=== PATIENT | male | born 1965 | race Caucasian/White ===

== ENCOUNTER → 2018-08-28 | Outpatient (CLI) | payer BC, OTHER ==
--- NOTE | 2018-08-28 15:28 | NM ---
EXAMINATION TYPE: NM bone/joint limited DATE OF EXAM: 08/28/2018 COMPARISON: NONE HISTORY: Bilateral knee pain for 4 to 5 months. Known left arthroplasty. TECHNIQUE: After the intravenous administration of 25.0 mCi Tc 99m MDP. Images acquired 3 hours pos t injection. Multiple views of knees are submitted. FINDINGS: Although there is radiotracer uptake within both knees findings on the right are likely rel ated to arthropathy. Findings on the left with a history of left knee prosthesis are suggestive of as eptic loosening as there is diffuse periprosthetic uptake. Septic loosening is also possible. IMPRESSION: Periprosthetic uptake surrounding the left knee arthroplasty that can be seen in septic o r aseptic loosening. Correlate with timing of left knee arthroplasty as this can also be seen physiol ogically up to one year after surgery. Mild uptake within the right knee suggests arthropathy.
== END | disposition home or self-care (01) ==
LOC: RADNMMAIN 10:12
PROVIDERS: ATTEND Orthopaedic Surgery
DX: M17.11 Unilateral primary osteoarthritis, right knee (principal); M25.562 Pain in left knee; Z96.652 Presence of left artificial knee joint
CPT/HCPCS: 78300; A9503

== ENCOUNTER → 2018-10-13 | Outpatient (CLI) | payer BC, OTHER ==
[~2018-10-13] MED LIST: REGADENOSON 0.4 MG/5 ML SYRINGE IV ONE
--- NOTE | 2018-10-13 12:52 | NM ---
EXAMINATION TYPE: NM stress lexiscan cardiolite DATE OF EXAM: 10/13/2018 COMPARISON: NONE HISTORY: Chest pain TECHNIQUE: After the intravenous administration of 10.14 mCi Tc 99m Sestamibi - Cardiolite resting S PECT images acquired 45 minutes post injection. The patient received 0.4mg Lexiscan, 24.4 mCi Tc 99m Sestamibi - Stress images obtained [address] injection FINDINGS: Review of stress and rest SPECT images demonstrates no distinct perfusion abnormality. Gated analysi s shows normal wall motion with an estimated left ventricular ejection fraction of 58 %. IMPRESSION: No scintigraphic evidence for reversible ischemia.
--- NOTE | 2018-10-13 13:53 | EST ---
EXERCISE STRESS AGE: 53 SEX: M HT: 5'7" WT: 210 PROTOCOL: Lexiscan Cardiolite Stress Scan HEART RATE REST: 67 BLOOD PRESSURE REST: 138/80 MAXIMUM HEART RATE ACHIEVED: 95 MAXIMUM BLOOD PRESSURE: 139/72 85% MPHR: 141 100% MPHR: 166 INDICATIONS: Abnormal EEG, preoperative. CLINICAL INFORMATION: Baseline rhythm is a sinus mechanism, rate of 67, borderline right axis deviation. Baseline blood pressure 138/80 mmHg. Patient received injection of Lexiscan. Electrocardiographic monitoring revealed no evidence of diagnostic ischemic ST deviation. Cardiolite was injected per protocol. CONCLUSION: 1. Nondiagnostic electrocardiograph stress testing. 2. Nuclear images will be reported separately. MMODL / IJN: [id number] /
== END | disposition home or self-care (01) ==
LOC: RADNMMAIN 08:19
PROVIDERS: ATTEND Family Medicine
DX: R94.31 Abnormal electrocardiogram [ECG] [EKG] (principal)
CPT/HCPCS: 93017; 78452; A9500; J2785

== ENCOUNTER → 2018-10-16 | Outpatient (CLI) | payer BC, OTHER ==
--- NOTE | 2018-10-16 11:47 | XR ---
EXAMINATION TYPE: XR chest 2V DATE OF EXAM: 10/16/2018 COMPARISON: 11/01/2010 HISTORY: Presurgical evaluation. TECHNIQUE: Frontal and lateral views of the chest are obtained. FINDINGS: There is no focal air space opacity, pleural effusion, or pneumothorax seen. The cardiac silhouette size is within normal limits. The osseous structures are intact. Multilevel mild degener ative changes of the thoracic spine are seen as well as old healed rib fracture deformity of a lower posterior lateral right rib. IMPRESSION: No acute cardiopulmonary process.
== END | disposition home or self-care (01) ==
LOC: RADXRMAIN 10:01
PROVIDERS: ATTEND Family Medicine
DX: Z01.818 Encounter for other preprocedural examination (principal)
CPT/HCPCS: 71046

== ENCOUNTER 2018-10-22 13:00 | Inpatient (IN) | payer BC, OTHER ==
[2018-10-30 09:38] VITALS: BMI 33.6
[2018-10-31] MEDS ORDERED: ACETAMINOPHEN TAB 500 MG TAB PO ONE (05:00)
[2018-10-31] MEDS ORDERED: MELOXICAM 7.5 MG TAB PO ONE (05:00)
[2018-10-31] MEDS ORDERED: TRANEXAMIC ACID 1,000 MG in SODIUM CHLORIDE 0.9% 50 ML IVPB ONE ×4 (05:00)
[2018-10-31] MEDS ORDERED: ceFAZolin IN SWFI 2 GM/20 ML SYRINGE IVP ONE (05:00)
[2018-10-31] MEDS ORDERED: ONDANSETRON 4 MG/2 ML VIAL IVP ONE (05:49)
[2018-10-31] MEDS ORDERED: DEXAMETHASONE SOD PHOSPHATE 10 MG/ML 1 ML VIAL IV ONE (05:49)
[2018-10-31] MEDS ORDERED: SCOPOLAMINE 1.5MG/72HR PATCH TRANSDERM ONE (05:49)
[2018-10-31] MEDS ORDERED: HYDROmorphone 0.5 MG/0.5 ML SYRINGE IVP PRN ×3 (05:49→09:23)
[2018-10-31] MEDS ORDERED: ROPIVACAINE 246.25 MG, EPINEPHrine 0.5 MG, KETOROLAC 30 MG, cloNIDine HCL/PF 80 MCG, WA... MISCELLANE ONE ×5 (06:21)
[2018-10-31] MEDS ORDERED: LIDOCAINE 1% 20 ML VIAL (10MG/ML) FOR IV START INTRADERMA ONE (07:55)
[2018-10-31] MEDS: LACTATED RINGERS 1,000 ML IV SCH ×2 (07:55→13:26)
[2018-10-31] MEDS: MIDAZOLAM (PF) 2 MG/2 ML VIAL IV PRN ×2 (08:29→08:33)
[2018-10-31] MEDS ORDERED: fentaNYL (PF) 50 MCG/ML 2 ML AMP IVP ONE (08:30)
[2018-10-31] MEDS ORDERED: DIAZEPAM 5 MG TAB PO PRN (09:23)
[2018-10-31] MEDS ORDERED: HYDROmorphone 1 MG/ML 1 ML SYRINGE IVP PRN (09:23)
[2018-10-31] MEDS ORDERED: ONDANSETRON 4 MG/2 ML VIAL IVP PRN (09:23)
[2018-10-31] MEDS ORDERED: MAGNESIUM HYDROXIDE 2,400 MG/10 ML CUP PO PRN (09:23)
[2018-10-31] MEDS ORDERED: BISACODYL 10 MG SUPP RECTAL PRN (09:23)
[2018-10-31] MEDS ORDERED: NA PHOS,M-B/NA PHOS,DI-BA 133 ML ENEMA RECTAL PRN (09:23)
[2018-10-31] MEDS ORDERED: NALOXONE 0.4 MG/ML 1 ML VIAL IV PRN (09:23)
[2018-10-31] MEDS ORDERED: hydrOXYzine PAMOATE 25 MG CAP PO PRN (09:23)
[2018-10-31] MEDS ORDERED: HYDROcodone/APAP 7.5-325MG 1 EACH TAB PO PRN (09:25)
[2018-10-31] MEDS ORDERED: fentaNYL (PF) 50 MCG/ML 2 ML AMP ONE (09:55)
[2018-10-31] MEDS ORDERED: BUPIVACAINE (PF) 0.5% 30 ML VIAL ONE (09:55)
[2018-10-31] MEDS ORDERED: SODIUM CHLORIDE 0.9% 100 ML BAG ONE (09:55)
[2018-10-31] MEDS ORDERED: PROPOFOL 10 MG/ML 20 ML VIAL IV ONE (09:55)
[2018-10-31] MEDS ORDERED: TRANEXAMIC ACID 1,000 MG/10 ML VIAL ONE (09:55)
[2018-10-31] MEDS ORDERED: ePHEDrine SULFATE/0.9% NACL/PF 50 MG/5 ML SYRINGE IV ONE (09:55)
[2018-10-31] MEDS ORDERED: MIDAZOLAM 2 MG/2 ML VIAL ONE (09:55)
[2018-10-31] MEDS ORDERED: ceFAZolin 3,000 MG in SODIUM CHLORIDE 0.9% IRRIGATIO 3,000 ML IRRIGATION ONE (10:39)
[2018-10-31] MEDS ORDERED: LACTATED RINGERS 1,000 ML IV ONE (10:43)
[2018-10-31] MEDS ORDERED: ROPIVACAINE 1,100 MG, SODIUM CHLORIDE 0.9% 500 ML 330 ML MISCELLANE PRN ×4 (11:38)
--- NOTE | 2018-10-31 11:42 | P.ONQ ---
Anesthesiology Proc Note - PNB - Peripheral Nerve Block Performed Left Adductor Canal Infusion Time Out Performed: Yes (829) Procedure Start Time: :30 Procedure Stop Time: :40 Indication: Acute Post-Operative Pain, Dx/Pain Location (Left Knee Pain), Requested by physician Sedation Type: Sedate with meaningful contact maintained Preparation: Sterile Prep Position: Supine Catheter: Indwelling Needle Types: On-Q Needle Size: 100mm (4") Needle Gauge: 21 Technique: Ultrasound Injectate: 0.5% Ropivacaine (see comment for volume) (20ml) Blood Aspirated: No Pain Paresthesia on Injection Noted: No Resistance on Injection: Normal Events: Uneventful and Well Tolerated
--- NOTE | 2018-10-31 12:18 | P.OP ---
Date of Procedure: 10/31/18 Preoperative Diagnosis: Aseptic loosening left total knee arthroplasty Stiffness left total knee arthroplasty Postoperative Diagnosis: Aseptic loosening femoral component left total knee arthroplasty Stiffness left total knee arthroplasty Procedure(s) Performed: Revision left total knee arthroplasty Implants: Blunt and Nephew Oxinium constrained femoral component size 4, left Blunt and Nephew Legion press-fit stem 18 mm x 160 mm Blunt & Nephew legion revision tibial baseplate size 4 Blunt and Nephew Legion press-fit stem 16 mm x 120 mm Blunt & Nephew size 9 mm Legion constrained articular insert, size 3-4 Blunt & Nephew Yuki II resurfacing patellar component, 29 mm, 7.5 mm thick All components were cemented using Master antibiotic bone cement with tobramycin 2 The articulation is Oxinium on polyethylene. Anesthesia: spinal Surgeon: Nabor Carroll Public Relations Senior Associate #1: Ava Pearl Estimated Blood Loss (ml): 100 Pathology: other (Cultures 2, frozen section) Condition: stable Disposition: PACU Indications for Procedure: This is a 53-year-old gentleman presented to my office with pain and instability of his left knee. He is at a prior left total knee by Dr. Albert this continued to have trouble with it. X-rays of bone scan indicate strong possibility of loosening of his left total knee. After discussing the surgical and nonsurgical treatment options with him at length, he wishes to proceed with a revision of his left total knee arthroplasty, and informed consent was obtained. Operative Findings: The operative findings are consistent with loosening of the femoral component left total knee arthroplasty. Also the findings are consistent with significant arthrofibrosis of the left total knee with significant scar formation Description of Procedure: Patient was seen in the preoperative area consent was reviewed and operative site was marked with a skin marker. An adductor canal pain catheter was placed by anesthesia in the preoperative area. Patient was then brought to the operating room and given preoperative antibiotics intravenously. A spinal anesthetic was administered by the anesthesia department. A tourniquet was placed on the upper thigh and the lower extremity was prepped and draped in usual sterile fashion. A gram of transexamic acid was given. A universal timeout was then performed which confirmed the patient's name, surgical site, ALLERGIES, and consent. The lower extremity was then exsanguinated and tourniquet was inflated to 250 mmHg. A standard and anterior midline approach to the knee was performed. The skin and subcutaneous tissue was dissected down to the patellar tendon, with the prior scar being excised. A medial parapatellar arthrotomy was then performed. A moderate amount of clear fluid was encountered, and this was cultured 2. The knee was then extended, the patellar was everted, and the knee was again flexed. A sample of synovium was then sent for frozen section, which was found to be negative for acute inflammation. There was difficulty in everting the patella, so a quadriceps snip was performed in order to enhance exposure without risking rupturing the patellar tendon. The components were then inspected and grossly were found to be well fixed. The tibial poly-was then removed without incident. Attention was directed to the femur. On closer inspection, the femoral component did appear to be loose. Also, it was noted that the femoral component was quite large and possibly oversized. Using a small oscillating saw, the implant cement interface was disrupted, and the femoral component was easily removed with an osteotome and a mallet. There was minimal bone loss encountered. Attention was then directed to the tibia. Again using a small oscillating saw, the implant bone interface was disrupted. The tibial component was an easily removed with an osteotome and a mallet. The undersurface of the tibial component showed very little bone ingrowth. There was very little bone loss from the tibia. Next, the saw was then used to remove the patellar component and as well. Attention was redirected to the femur. Sequential reaming of the femoral canal was performed until good cortical fit at 18 mm. The distal cutting guide was then placed over the reamer the distal femur cut was performed. Next the 4-in- 1 cutting block was placed over the reamer and the appropriate cuts were performed. The cutting block and reamer were then removed and the femoral trial was placed. The bone was then removed for the box. Femoral trial was then removed. Attention was then redirected to the tibia. Sequential reaming of the tibial canal was performed until good cortical fit at 16 mm. The intramedullary proximal tibial cutting guide was then placed over the reamer, the proximal tibia was cut. The tibia was sized. The tibia was then reamed proximally.. Trials were then placed with a 9 mm constrained liner. The knee was able to fully extend and flex to 115 and was stable throughout all range of motion. Trials were then removed. The cut surfaces of bone were then irrigated with pulsatile lavage. The posterior structures were injected with the ropivacaine solution. The knee was also irrigated with Irrisept solution. The components were then opened, the cement was mixed, and the components were then cemented in place. The cement was allowed to harden with the knee in full extension. While the cement was hardening, the remaining soft tissues were then injected with a ropivacaine solution, which consisted of 246.25 mg of ropivacaine, 0.5 mg of epinephrine, 30 mg of Toradol, 80 g of clonidine, and 48.45 mL of sterile water, for a total of 100 mL of fluid injected. After the cemented hardened. The tourniquet was released, and hemostasis was obtained. A second gram of transexamic acid was given. The knee was again irrigated. The knee was again taken through range of motion and found to be stable throughout all range of motion of 0-130 , and the patella tracked normally. The fascia was then closed with #2 strata fix suture. The subcutaneous tissue was closed with 3-0 Vicryl and 3-0 strata fix. Dermabond glue was used for the skin and placed with the knee in flexion. The patient was placed in a sterile silver dressing. Patient was then transferred to recovery room in stable condition. The family and divorce legal assistant LAURENT Tom was required due the complexity surgery and the need for a skilled certified surgical technician. She assisted in positioning, draping, retraction, and closure of the wound.
[2018-10-31] MEDS: SODIUM CHLORIDE 0.9% 1,000 ML IV SCH (13:27)
--- NOTE | 2018-10-31 13:31 | XR ---
EXAMINATION TYPE: XR knee limited LT DATE OF EXAM: 10/31/2018 CLINICAL HISTORY: Postoperative evaluation Two views of the left knee are submitted. Identified are changes of total knee arthroplasty with fem oral and tibial components appearing well seated. Postsurgical soft tissue changes are noted. Align ment is anatomic.
[2018-10-31] MEDS: ceFAZolin IN SWFI 2 GM/20 ML SYRINGE IVP SCH (17:23)
[2018-10-31] MEDS: ASPIRIN 325 MG TAB PO SCH (20:52)
[2018-10-31] MEDS ORDERED: SENNOSIDES-DOCUSATE SODIUM 1 EACH TAB PO SCH (21:00)
[2018-11-01] MEDS: SODIUM CHLORIDE 0.9% 1,000 ML IV SCH (00:21)
[2018-11-01 01:07] VITALS: RESP 16
[2018-11-01] MEDS: ceFAZolin IN SWFI 2 GM/20 ML SYRINGE IVP SCH (02:05)
[2018-11-01] MEDS: HYDROcodone/APAP 7.5-325MG 1 EACH TAB PO PRN ×2 (02:05→08:03)
[2018-11-01 07:10] LABS: Basophils % (A) 0 %; Eosinophils # (A) 0.1 k/uL (0-0.7); Eosinophils % (A) 1 %; HCT 40.2 % (39.0-53.0); HGB 12.9 gm/dL (13.0-17.5); Lymphocytes # (A) 1.4 k/uL (1.0-4.8); Lymphocytes % (A) 18 %; MCH 28.9 pg (25.0-35.0); MCHC 32.1 g/dL (31.0-37.0); Mean Platelet Volume 6.7; Monocytes # (A) 0.6 k/uL (0-1.0); Monocytes % (A) 8 %; Neutrophils # (A) 5.4 k/uL (1.3-7.7); Neutrophils % (A) 70 %; Platelet Count 276 k/uL (150-450); RBC 4.47 m/uL (4.30-5.90); RDW 13.3 % (11.5-15.5); WBC 7.7 k/uL (3.8-10.6)
[2018-11-01 07:42] VITALS: BP 129/76; PULSE 64; TEMP 98.4
[2018-11-01] MEDS: ASPIRIN 325 MG TAB PO SCH (08:03)
[2018-11-01] MEDS ORDERED: MELOXICAM 7.5 MG TAB PO SCH (09:00)
--- NOTE | 2018-11-01 11:11 | P.DS ---
Providers Date of admission: 10/31/18 07:26 Expected date of discharge: 11/01/18 Attending physician: Nabor Carroll Consults: 10/31/18 09:23 Consult Physician Routine Consulting Provider: Clive Tomas Reason/Comments: medical management Do you want consulting provider notified?: Yes Primary care physician: Clive Tomas - Discharge Diagnosis(es) (1) Left knee pain Current Visit: Yes Status: Acute (2) Status post total left knee replacement Current Visit: Yes Status: Acute Hospital Course: This is a pleasant 53-year-old male who presented with aseptic loosening of femoral head component of left total knee arthroplasty and stiffness of left total knee arthroplasty who failed outpatient conservative therapy. He was admitted for a revision left total knee arthroplasty. The patient tolerated the procedure well and did well postoperatively. He feels his left knee pain has already improved as compared to prior to surgical intervention. He has been able to weight-bear on the left lower extremity and feels his pain is better controlled while doing so. He is ready for discharge home. Condition on day of discharge stable. Patient will be discharged home. Patient was cleared preoperatively for surgery by Dr. Tomas. He receives his narcotic pain medication from Dr. Tomas. Patient currently denies any nausea, vomiting, fever, or chills. Patient is eating and voiding freely without difficulty. Patient may shower with dressing intact. Dressing may be removed in 10 days by home care nurse. He is given a prescription for a CPM and she uses 5-6 hours daily. He may continue to weight-bear as tolerated with a walker. He is given a prescription for aspirin 325 mg 1 tab twice a day dispensed #30 discharge. Patient is clear for discharge from orthopedic standpoint once cleared by medicine. He may continue to use the On-Q pain pump as instructed. Physical Exam on day of discharge: Status post surgical day number 1 Patient is awake, alert, and oriented 3 Vital signs stable Good chest excursion with deep inspiration and expiration Abdomen soft nontender No signs or symptoms of DVT; no calf pain Dressing over the left knee is clean, dry, and intact; no erythema, purulence, or signs of infection Some swelling evident around the left knee Patient has full foot and ankle motion without difficulty bilateral lower extremities Dorsiflexion, plantar flexion, and extensor hallucis longus positive sustained bilaterally Neurovascular status left lower extremity intact Currently using CPM machine Procedures: Revision left total knee arthroplasty Patient Condition at Discharge: Stable Plan - Discharge Summary Discharge Rx Participant: No New Discharge Prescriptions: New Aspirin 325 mg PO BID #60 tab No Action HYDROcodone/APAP 7.5-325MG [Trade 7.5-325] 1 tab PO Q8H PRN PRN Reason: Pain Lisinopril [Prinivil] 20 mg PO DAILY amLODIPine [Norvasc] 5 mg PO DAILY Rosuvastatin [Crestor] 10 mg PO DAILY Diclofenac Potassium [Cataflam] 50 mg PO BID Fluticasone/Salmeterol [Advair 250-50 Diskus] 1 inhalation PO RT-DAILY PRN PRN Reason: Dyspnea Cetirizine HCl 10 mg PO DAILY Testosterone (Unknown Dose) 1 dose INJ Q30D Discharge Medication List HYDROcodone/APAP 7.5-325MG [[place] 7.5-325] 1 tab PO Q8H PRN 06/30/15 [History] Lisinopril [Prinivil] 20 mg PO DAILY 06/30/15 [History] Cetirizine HCl 10 mg PO DAILY 10/30/18 [History] Diclofenac Potassium [Cataflam] 50 mg PO BID 10/30/18 [History] Fluticasone/Salmeterol [Advair 250-50 Diskus] 1 inhalation PO RT-DAILY PRN 10/30 [History] Rosuvastatin [Crestor] 10 mg PO DAILY 10/30/18 [History] Testosterone (Unknown Dose) 1 dose INJ Q30D 10/30/18 [History] amLODIPine [Norvasc] 5 mg PO DAILY 10/30/18 [History] Aspirin 325 mg PO BID #60 tab 10/31/18 [Rx] Follow up Appointment(s)/Referral(s): [facility], [NON-STAFF] - Nabor Carroll DO [Doctor of Osteopathic Medicine] - 2 Weeks Ambulatory/Diagnostic Orders: Continuous Passive Motion (CPM) Machine [DME.AMB1] Time Frame: 3 Weeks, Location : None Selected Activity/Diet/Wound Care/Special Instructions: Weightbearing as tolerated with a walker. CPM 5-6h daily. Leave dressing intact. May be removed by home care nurse in 10 days. May shower with dressing on. Pain management per Dr. Tomas. Please follow up with [facility] and call with any questions or concerns, . *Please call [facility] once home to arrange delivery of [facility] [phone] Discharge Disposition: HOME WITH HOME HEALTH SERVICES
--- NOTE | 2018-11-02 09:36 | P.PN ---
Progress Note - Text Progress Note Date: 11/01/18 53-year-old male status post left total knee arthroplasty revision postop day # 1. Abductor canal catheter day #2. Patient doing well no motor sensory deficits. Ambulating well, tolerating diet well. VAS is a 2-3 out of 10 in severity. Still having pain in the posterior aspect of his knee. He took one Percocet today. Instructions given for On-Q pump. Patient will be discharged today.
--- NOTE | 2018-11-03 01:03 | CONS ---
CONSULTATION DATE OF SERVICE: 10/31/2018. CHIEF COMPLAINT: A 53-year-old white male status post left knee replacement for medical management consult. He has a history of hypertension, dyslipidemia. He is complaining of severe insomnia at this time. He has chronic arthritis, degenerate disk disease. PHYSICAL EXAMINATION: CARDIOVASCULAR: S1 and S2. LUNGS: Clear. GI: Soft. HEMATOLOGY: Negative Homans. PSYCH: Fair mood and affect. REVIEW OF SYSTEMS: Fourteen point review of systems negative except for mentioned in HPI. MEDICATIONS: Reviewed. ASSESSMENT: 1. Status post left knee replacement. 2. Hypertension. 3. Dyslipidemia. 4. Asthma/COPD. 5. Osteoarthritis. 6. Insomnia. Will start Ambien for sleep 5 mg at night. Continue for next 24 to 48 hours for possible discharge. Appears to be doing fairly well from medical standpoint. MMODL / IJN: [id number] /
== END 2018-11-01 12:48 | disposition home health service (06) | DRG 468 ==
LOC: 2ORMAIN 10-31 07:26 → 4SSUR 10-31 13:10
PROVIDERS: ADMIT Orthopaedic Surgery; ATTEND Orthopaedic Surgery
PROC: 0SRD0J9 Replacement of Left Knee Joint with Synthetic Substitute, Cemented, Open Approach (ICD-10-PCS; 2018-10-31)
PROC: 0SPD0JZ Removal of Synthetic Substitute from Left Knee Joint, Open Approach (ICD-10-PCS; principal; 2018-10-31 09:30)
DX: T84.033A Mechanical loosening of internal left knee prosthetic joint, initial encounter (principal); Y79.2 Prosthetic and other implants, materials and accessory orthopedic devices associated with adverse incidents; I10 Essential (primary) hypertension; E78.5 Hyperlipidemia, unspecified; G47.00 Insomnia, unspecified; M17.11 Unilateral primary osteoarthritis, right knee; J44.9 Chronic obstructive pulmonary disease, unspecified; Z87.891 Personal history of nicotine dependence; Z79.899 Other long term (current) drug therapy; Z82.49 Family history of ischemic heart disease and other diseases of the circulatory system
CPT/HCPCS: 85025; 87070; 87075; 87205; 88305; 88331

== ENCOUNTER → 2019-03-03 | Outpatient (CLI) | payer BC, OTHER | LOC: CPPFTMAIN 10:08 | PROVIDERS: ATTEND Family Medicine | DX: R06.00 Dyspnea, unspecified (principal) | CPT/HCPCS: 94060; 94726; 94729 ==

== ENCOUNTER 2019-11-21 10:40 | Emergency (ER) | payer BC, OTHER ==
[2019-11-21 10:54] VITALS: BP 163/103; PULSE 77; TEMP 98.1
--- NOTE | 2019-11-21 11:12 | ED ---
ENT HPI - General Chief complaint: ENT Stated complaint: Right Ear Problems Time Seen by Provider: 11/21/19 10:58 Source: patient, RN notes reviewed Mode of arrival: wheelchair Limitations: no limitations - History of Present Illness Initial comments: 54-year-old male presents emergency Department chief complaint of right ear being plugged. Patient states that he would like to wax yesterday and states that it seemed to plug up after and states this ringing. Denies any known fevers or chills states it is slightly painful. Denies any bleeding. Patient denies any nasal congestion, sore throat, headache or dizziness no chest pain or shortness breath. - Related Data Home Medications Medication Instructions Recorded Confirmed HYDROcodone/APAP 7.5-325MG [[place] 1 tab PO Q8H PRN 06/30/15 10/31/18 7.5-325] Lisinopril [Prinivil] 20 mg PO DAILY 06/30/15 10/31/18 Cetirizine HCl 10 mg PO DAILY 10/30/18 10/31/18 Diclofenac Potassium [Cataflam] 50 mg PO BID 10/30/18 10/31/18 Fluticasone/Salmeterol [Advair 1 inhalation PO RT-DAILY PRN 10/30/18 10/31/18 250-50 Diskus] Rosuvastatin [Crestor] 10 mg PO DAILY 10/30/18 10/31/18 Testosterone (Unknown Dose) 1 dose INJ Q30D 10/30/18 10/31/18 amLODIPine [Norvasc] 5 mg PO DAILY 10/30/18 10/31/18 Previous Rx's Medication Instructions Recorded Aspirin 325 mg PO BID #60 tab 10/31/18 Zolpidem Tartrate [Ambien] 5 mg PO HS PRN #15 tab 11/01/18 Amoxicillin 875 mg PO Q12HR #20 tablet 11/21/19 Fluticasone Nasal [place] [Flonase 2 spr EA NOSTRIL DAILY #1 bottle 11/21/19 Nasal [place]] Allergies Allergy/AdvReac Type Severity Reaction Status Date / Time No Known Allergies Allergy Verified 11/21/19 10:50 Review of Systems ROS Statement: Those systems with pertinent positive or pertinent negative responses have been documented in the HPI. ROS Other: All systems not noted in ROS Statement are negative. Past Medical History Past Medical History: Hypertension Additional Past Medical History / Comment(s): shortness of breath on occasion, sinus issues History of Any Multi-Drug Resistant Organisms: None Reported Past Surgical History: Joint Replacement, Orthopedic Surgery Additional Past Surgical History / Comment(s): LEFT KNEE REPLACEMENT,LEFT ANKLE Past Anesthesia/Blood Transfusion Reactions: No Reported Reaction Past Psychological History: No Psychological Hx Reported Past Drug Use History: None Reported - Past Family History Mother Family Medical History: No Reported History General Exam Limitations: no limitations General appearance: alert, in no apparent distress Head exam: Present: atraumatic, normocephalic, normal inspection Eye exam: Present: normal appearance, PERRL, EOMI. Absent: scleral icterus, conjunctival injection, periorbital swelling ENT exam: Present: normal oropharynx, mucous membranes moist, normal external ear exam. Absent: TM's normal bilaterally (Right TM erythematous, mild fluid noted) Neck exam: Present: normal inspection, full ROM. Absent: tenderness, meningismus, lymphadenopathy Respiratory exam: Present: normal lung sounds bilaterally. Absent: respiratory distress, wheezes, rales, rhonchi, stridor Cardiovascular Exam: Present: regular rate, normal rhythm, normal heart sounds. Absent: systolic murmur, diastolic murmur, rubs, gallop, clicks Course Vital Signs 11/21/19 10:48 Temperature 98.1 F Pulse Rate 77 Respiratory 16 Rate Blood Pressure 163/103 O2 Sat by Pulse 98 Oximetry Medical Decision Making - Medical Decision Making Patient has primary fluid noted in the right TM there is no evidence of perforation mild erythema. Patient we given antibiotics and Flonase advised take a decongestant return parameters were discussed. Disposition Clinical Impression: Otitis media, Eustachian tube dysfunction Disposition: HOME SELF-CARE Condition: Stable Instructions (If sedation given, give patient instructions): Earache (ED) Additional Instructions: Please return to the Emergency Department if symptoms worsen or any other concerns. Prescriptions: Amoxicillin 875 mg PO Q12HR #20 tablet Fluticasone Nasal [place] [Flonase Nasal [place]] 2 spr EA NOSTRIL DAILY #1 bottle Is patient prescribed a controlled substance at d/c from ED?: No Referrals: Clive Tomas MD [Primary Care Provider] - 1-2 days Time of Disposition: 11:12
[2019-11-21 11:23] VITALS: RESP 18
== END 2019-11-21 11:23 | disposition home or self-care (01) ==
LOC: EC 10:40
DX: H66.91 Otitis media, unspecified, right ear (principal); H69.91 Unspecified Eustachian tube disorder, right ear; I10 Essential (primary) hypertension; Z79.899 Other long term (current) drug therapy; Z96.652 Presence of left artificial knee joint
CPT/HCPCS: 99282

== ENCOUNTER → 2020-01-12 | Outpatient (CLI) | payer BC, OTHER ==
--- NOTE | 2020-01-12 08:16 | CT ---
EXAMINATION TYPE: CT sinus wo con DATE OF EXAM: 01/12/2020 COMPARISON: NONE HISTORY: Sinusitis, ear fullness CT DLP: 525.9 mGycm. Automated Exposure Control for Dose Reduction was Utilized. TECHNIQUE: CT scan of the sinuses is performed without contrast, axial images are obtained, coronal r eformatted images are also reviewed. FINDINGS: There is occlusion of the left ostiomeatal complex secondary to severe mucosal thickening n early completely filling the left maxillary sinus. Paranasal sinuses appear nearly symmetric in size on the coronal view. Mild mucosal thickening of the ethmoid sinuses inferiorly with moderate mucosal thickening of the ethmoid sinuses more superiorly near the frontal recesses. Under recesses are obscu red with mucosal thickening extending into the inferior aspect of the frontal sinuses. Only scant mu cosal thickening seen in the frontal sinuses. The right maxillary sinus also demonstrates scant mucos al thickening as does the anterior left sphenoid sinus. Mastoid air cells are incompletely visualized . Visualized portions are well aerated. There is leftward nasal septal deviation of the most anterior aspect of the nasal septum. Right ostio meatal complex is patent. There are 2 Son cells on the right measuring 5 and 6 mm. Mild right infe rior nasal turbinate mucosal hypertrophy. Orbits are symmetric. Evaluation of the intracranial struct ures is limited given technique. IMPRESSION: 1. Severe left maxillary mucosal thickening and obstruction of the ostium renal complex. 2. Occlusion of the bilateral frontal recesses and overall moderate mucosal thickening of the ethmoid sinuses with scant mucosal thickening of the right maxillary sinus, sphenoid sinus and frontal sinus . 3. Leftward nasal septal deviation of the most anterior aspect of the nasal septum. 4. There are 2 small subcentimeter right-sided nonobstructive Son cells. 5. Right inferior nasal turbinate mucosal hypertrophy.
== END | disposition home or self-care (01) ==
LOC: RADCTMAIN 07:46
PROVIDERS: ATTEND Family Medicine
DX: J34.2 Deviated nasal septum (principal); J34.89 Other specified disorders of nose and nasal sinuses; J32.9 Chronic sinusitis, unspecified
CPT/HCPCS: 70486

== ENCOUNTER 2023-05-19 10:29 | Emergency (ER) | payer BC, OTHER ==
[2023-05-19 10:38] VITALS: PULSE 72; TEMP 98.6
[2023-05-19] MEDS ORDERED: KETOROLAC 15 MG/ML 1 ML VIAL IM STA (11:01)
--- NOTE | 2023-05-19 11:08 | ED ---
Extremity Problem HPI - General Chief complaint: Extremity Problem,Nontraumatic Stated complaint: Left foot pain Time Seen by Provider: 05/19/23 10:48 Source: patient, RN notes reviewed, old records reviewed Mode of arrival: ambulatory Limitations: no limitations - History of Present Illness Initial comments: 49-year-old male presents to the emergency room with left plantar foot pain since Saturday. Woke up with increased pain Saturday and pain daily since. States was at his primary care doctor's office on and received testosterone shot. Denies any injuries. Has been able to ambulate MD Complaint: other (left foot pain) -: days(s) (3) Location: left History of Same: No Radiation: none Severity scale (1-10): 5 Associated Symptoms: denies other symptoms - Related Data Home Medications Medication Instructions Recorded Confirmed HYDROcodone/APAP 7.5-325MG [[place] 1 tab PO Q8H PRN 06/30/15 10/31/18 7.5-325] lisinopriL [Prinivil] 20 mg PO DAILY 06/30/15 10/31/18 Cetirizine HCl 10 mg PO DAILY 10/30/18 10/31/18 Diclofenac Potassium [Cataflam] 50 mg PO BID 10/30/18 10/31/18 Fluticasone Propion/Salmeterol 1 inhalation PO RT-DAILY PRN 10/30/18 10/31/18 [Advair 250-50 Diskus] Rosuvastatin [Crestor] 10 mg PO DAILY 10/30/18 10/31/18 Testosterone (Unknown Dose) 1 dose INJ Q30D 10/30/18 10/31/18 amLODIPine [Norvasc] 5 mg PO DAILY 10/30/18 10/31/18 Previous Rx's Medication Instructions Recorded Aspirin 325 mg PO BID #60 tab 10/31/18 Zolpidem Tartrate [Ambien] 5 mg PO HS PRN #15 tab 11/01/18 Amoxicillin 875 mg PO Q12HR #20 tablet 11/21/19 Fluticasone Nasal [place] [Flonase 2 spr EA NOSTRIL DAILY #1 bottle 11/21/19 Nasal [place]] Allergies Allergy/AdvReac Type Severity Reaction Status Date / Time No Known Allergies Allergy Verified 05/19/23 10:37 Review of Systems ROS Statement: Those systems with pertinent positive or pertinent negative responses have been documented in the HPI. ROS Other: All systems not noted in ROS Statement are negative. Past Medical History Past Medical History: Hypertension Additional Past Medical History / Comment(s): shortness of breath on occasion, sinus issues History of Any Multi-Drug Resistant Organisms: None Reported Past Surgical History: Joint Replacement, Orthopedic Surgery Additional Past Surgical History / Comment(s): LEFT KNEE REPLACEMENT,LEFT ANKLE Past Anesthesia/Blood Transfusion Reactions: No Reported Reaction Past Psychological History: No Psychological Hx Reported Smoking Status: Never smoker Past Alcohol Use History: Occasional Past Drug Use History: None Reported - Past Family History Mother Family Medical History: No Reported History General Exam Limitations: no limitations General appearance: alert, in no apparent distress Head exam: Present: atraumatic Eye exam: Present: normal appearance. Absent: scleral icterus, conjunctival injection Neck exam: Absent: meningismus Respiratory exam: Absent: respiratory distress, accessory muscle use Cardiovascular Exam: Present: regular rate Left Foot/Toe exam: Present: full ROM, tenderness (plantar surface anterior calcaneus). Absent: swelling, abrasion, laceration, ecchymosis, deformity, crepitus, erythema, puncture wound, calcaneal tenderness, tenderness at base of 5th metatarsal Neurovascular tendon exam: Present: no vascular compromise. Absent: abnormal cap refill, pallor, foot drop Neurological exam: Present: alert, oriented X3 Psychiatric exam: Present: normal affect, normal mood Skin exam: Present: warm, dry, normal color. Absent: cyanosis, diaphoretic, petechiae, pallor Course Vital Signs 05/19/23 05/19/23 10:34 11:18 Temperature 98.6 F Pulse Rate 72 72 Respiratory 18 16 Rate Blood Pressure 164/91 159/90 O2 Sat by Pulse 96 96 Oximetry Medical Decision Making - Medical Decision Making Was pt. sent in by a medical professional or institution (, PA, CALL CENTER TEAM LEADER, urgent care, hospital, or longterm...) When possible be specific @ -No Did you speak to anyone other than the patient for history (EMS, parent, family, police, friend...)? What history was obtained from this source @ -No Did you review nursing and triage notes (agree or disagree)? Why? @ -I reviewed and agree with nursing and triage notes Were old charts reviewed (outside hosp., previous admission, EMS record, old EKG, old radiological studies, urgent care reports/EKG's, longterm records)? Report findings @ -No old charts were reviewed Differential Diagnosis (chest pain, altered mental status, abdominal pain women, abdominal pain men, vaginal bleeding, weakness, fever, dyspnea, syncope, headache, dizziness, GI bleed, back pain, seizure, CVA, palpatations, mental health, musculoskeletal)? @ -Fracture, gout, cellulitis, fasciitis, Desir's neuroma EKG interpreted by me (3pts min.). @ -n/a X-rays interpreted by me (1pt min.). @ -None done CT interpreted by me (1pt min.). @ -None done U/S interpreted by me (1pt. min.). @ -None done What testing was considered but not performed or refused? (CT, X-rays, U/S, labs)? Why? @ -None What meds were considered but not given or refused? Why? @ -None Did you discuss the management of the patient with other professionals (professionals i.e. , PA, CALL CENTER TEAM LEADER, lab, RT, psych nurse, healthcare social worker, drawing kiln supervisor, teacher, railway patrol officer, case management social worker)? Give summary @ -No Was smoking cessation discussed for >3mins.? @ -No Was critical care preformed (if so, how long)? @ -No Were there social determinants of health that impacted care today? How? (Homelessness, low income, unemployed, alcoholism, drug addiction, transportation, low edu. Level, literacy, decrease access to med. care, longterm, rehab)? @ -No Was there de-escalation of care discussed even if they declined (Discuss DNR or withdrawal of care, Hospice)? DNR status @ -No What co-morbidities impacted this encounter? (DM, HTN, Smoking, COPD, CAD, Cancer, CVA, ARF, Chemo, Hep., AIDS, mental health diagnosis, sleep apnea, morbid obesity)? @ -Hypertension Was patient admitted / discharged? Hospital course, mention meds given and route, prescriptions, significant lab abnormalities, going to OR and other pertinent info. @ -Discharged 49-year-old male presents to the emergency room with left plantar foot pain since Saturday. Woke up with increased pain Saturday and pain daily since. States was at his primary care doctor's office on and received testosterone shot, did not have pain at that time. Denies any injuries. Has been able to ambulate Denies any trauma. No other joint pains. No fevers. On physical exam is no evidence of erythema or concern for foreign body. Neurovascularly intact. Pedal pulses are present Patient was given a shot of Toradol as this is likely plantar fasciitis. Pain is anterior medial aspect of calcaneus and worse with palpation. Patient was directed to use frozen water bottle and rolled foot across it. Motrin for pain. Follow-up with primary care doctor next week. Given work note as requested. He is agreeable to this plan of care. Case discussed with Dr. Marks Undiagnosed new problem with uncertain prognosis? @ -No Drug Therapy requiring intensive monitoring for toxicity (Heparin, Nitro, Insulin, Cardizem)? @ -No Were any procedures done? @ -No Diagnosis/symptom? @ -Plantar fasciitis Acute, or Chronic, or Acute on Chronic? @ -Acute Uncomplicated (without systemic symptoms) or Complicated (systemic symptoms)? @ -Uncomplicated Side effects of treatment? @ -No Exacerbation, Progression, or Severe Exacerbation? @ -No Poses a threat to life or bodily function? How? (Chest pain, [place], [place], pneumonia, PE, COPD, DKA, ARF, appy, cholecystitis, CVA, Diverticulitis, Homicidal, Suicidal, threat to staff... and all critical care pts) @ -No Disposition Clinical Impression: Plantar fasciitis of left foot Disposition: HOME SELF-CARE Condition: Good Instructions (If sedation given, give patient instructions): Plantar Fasciitis (ED) Additional Instructions: Rest, ice, use frozen water bottle and roll foot across it multiple times a day. Tylenol and Motrin for pain. Follow-up with the primary care doctor or podiatry this week. Is patient prescribed a controlled substance at d/c from ED?: No Referrals: Clive Tomas MD [Primary Care Provider] - 1-2 days Time of Disposition: 11:06
[2023-05-19 11:23] VITALS: BP 159/90; RESP 16
== END 2023-05-19 11:30 | disposition home or self-care (01) ==
LOC: EC 10:29
DX: M72.2 Plantar fascial fibromatosis (principal); I10 Essential (primary) hypertension; Z79.899 Other long term (current) drug therapy
CPT/HCPCS: 99283; 96372; J1885

== ENCOUNTER 2024-10-05 10:16 | Emergency (ER) | payer BC, OTHER ==
[2024-10-05 10:24] VITALS: RESP 18
--- NOTE | 2024-10-05 11:02 | ED ---
Headache HPI - General Chief Complaint: Headache Stated Complaint: Head and neck pain Time Seen by Provider: 10/05/24 10:36 Source: RN notes reviewed Mode of arrival: ambulatory Limitations: no limitations - History of Present Illness Initial Comments: 59-year-old male presenting to the ER with chief complaint of headache x 2 months. Describes the pain as in the posterior aspect of head and radiates to the right neck into right shoulder. States it feels as though he "slept on it wrong" however is concerned how long it has lasted. States pain has worsened over the past few days. Denies trauma or injury. Denies vision changes, fever, chills, cough, flulike symptoms, chest pain, shortness of breath. He has a history of hypertension and hyperlipidemia. Denies blood thinners. - Related Data Home Medications Medication Instructions Recorded Confirmed HYDROcodone/APAP 7.5-325MG [[place] 1 tab PO Q8H PRN 06/30/15 10/31/18 7.5-325] lisinopriL [Prinivil] 20 mg PO DAILY 06/30/15 10/31/18 Cetirizine HCl 10 mg PO DAILY 10/30/18 10/31/18 Diclofenac Potassium [Cataflam] 50 mg PO BID 10/30/18 10/31/18 Fluticasone Propion/Salmeterol 1 inhalation PO RT-DAILY PRN 10/30/18 10/31/18 [Advair 250-50 Diskus] Rosuvastatin [Crestor] 10 mg PO DAILY 10/30/18 10/31/18 Testosterone (Unknown Dose) 1 dose INJ Q30D 10/30/18 10/31/18 amLODIPine [Norvasc] 5 mg PO DAILY 10/30/18 10/31/18 Previous Rx's Medication Instructions Recorded Aspirin 325 mg PO BID #60 tab 10/31/18 Zolpidem Tartrate [Ambien] 5 mg PO HS PRN #15 tab 11/01/18 Amoxicillin 875 mg PO Q12HR #20 tablet 11/21/19 Fluticasone Nasal [place] [Flonase 2 spr EA NOSTRIL DAILY #1 bottle 11/21/19 Nasal [place]] Allergies Allergy/AdvReac Type Severity Reaction Status Date / Time No Known Allergies Allergy Verified 10/05/24 10:24 Review of Systems ROS Statement: Those systems with pertinent positive or pertinent negative responses have been documented in the HPI. ROS Other: All systems not noted in ROS Statement are negative. Past Medical History Past Medical History: Hypertension Additional Past Medical History / Comment(s): shortness of breath on occasion, sinus issues History of Any Multi-Drug Resistant Organisms: None Reported Past Surgical History: Joint Replacement, Orthopedic Surgery Additional Past Surgical History / Comment(s): LEFT KNEE REPLACEMENT,LEFT ANKLE Past Anesthesia/Blood Transfusion Reactions: No Reported Reaction Past Psychological History: No Psychological Hx Reported Smoking Status: Never smoker Past Alcohol Use History: Occasional Past Drug Use History: None Reported - Past Family History Mother Family Medical History: No Reported History General Exam Limitations: no limitations General appearance: alert, in no apparent distress Head exam: Present: atraumatic, normocephalic, normal inspection Eye exam: Present: normal appearance, PERRL, EOMI. Absent: scleral icterus, conjunctival injection, periorbital swelling ENT exam: Present: normal exam, mucous membranes moist Neck exam: Present: normal inspection, full ROM. Absent: tenderness, meningismus, lymphadenopathy Respiratory exam: Present: normal lung sounds bilaterally. Absent: respiratory distress, wheezes, rales, rhonchi, stridor Cardiovascular Exam: Present: regular rate, normal rhythm, normal heart sounds. Absent: systolic murmur, diastolic murmur, rubs, gallop, clicks Neurological exam: Present: alert, oriented X3 Psychiatric exam: Present: normal affect, normal mood Skin exam: Present: warm, dry, intact, normal color. Absent: rash Course Vital Signs 10/05/24 10:20 Temperature 98.3 F Pulse Rate 95 Respiratory 18 Rate Blood Pressure 158/82 O2 Sat by Pulse 97 Oximetry Medical Decision Making - Medical Decision Making Was pt. sent in by a medical professional or institution (, PA, GRINDER SET UP OPERATOR THREAD, urgent care, hospital, or halfway...) When possible be specific @ -No Did you speak to anyone other than the patient for history (EMS, parent, family, police, friend...)? What history was obtained from this source @ -No Did you review nursing and triage notes (agree or disagree)? Why? @ -I reviewed and agree with nursing and triage notes Were old charts reviewed (outside hosp., previous admission, EMS record, old EKG, old radiological studies, urgent care reports/EKG's, halfway records)? Report findings @ -No old charts were reviewed Differential Diagnosis (chest pain, altered mental status, abdominal pain women, abdominal pain men, vaginal bleeding, weakness, fever, dyspnea, syncope, headache, dizziness, GI bleed, back pain, seizure, CVA, palpatations, mental health, musculoskeletal)? @ -Differential Headache: Migraine, tension, cluster, carbon monoxide, central venous thrombosis, pension karma temporal arteritis, acute closure glaucoma, intercranial hemorrhage, mastoiditis, sinusitis, head injury, this is not meant to be an all-inclusive list. EKG interpreted by me (3pts min.). @ -None X-rays interpreted by me (1pt min.). @ -None done CT interpreted by me (1pt min.). @ -CT brain and C-spine revealed no acute intracranial process, no evidence of C-spine fracture, moderate degenerative disc disease, acute sinusitis left maxillary sinus with air-fluid level U/S interpreted by me (1pt. min.). @ -None done What testing was considered but not performed or refused? (CT, X-rays, U/S, labs)? Why? @ -None What meds were considered but not given or refused? Why? @ -Declines pain medication Did you discuss the management of the patient with other professionals (professionals i.e. , PA, GRINDER SET UP OPERATOR THREAD, lab, RT, psych nurse, social media campaign manager, lifter driver, teacher, chief business officer, case management coordinator)? Give summary @ -No Was smoking cessation discussed for >3mins.? @ -No Was critical care preformed (if so, how long)? @ -No Were there social determinants of health that impacted care today? How? (Homelessness, low income, unemployed, alcoholism, drug addiction, transportation, low edu. Level, literacy, decrease access to med. care, fdc, rehab)? @ -No Was there de-escalation of care discussed even if they declined (Discuss DNR or withdrawal of care, Hospice)? DNR status @ -No What co-morbidities impacted this encounter? (DM, HTN, Smoking, COPD, CAD, Cancer, CVA, ARF, Chemo, Hep., AIDS, mental health diagnosis, sleep apnea, morbid obesity)? @ -None Was patient admitted / discharged? Hospital course, mention meds given and route, prescriptions, significant lab abnormalities, going to OR and other pertinent info. @ -Discharged. This is a 59-year-old male presenting to the ER for headache x 2 months with neck pain. No red flag symptoms. Vital signs within acceptable limits. Neuro examination unremarkable. CT brain and C-spine revealed no acute process. Discussed negative findings with patient. I believe it is safe to discharge patient home with close PCP follow-up. Appropriate return precautions and follow-up discussed with patient. Patient is agreeable to this plan. Case was discussed with my ED attending Dr. Mata. Undiagnosed new problem with uncertain prognosis? @ -No Drug Therapy requiring intensive monitoring for toxicity (Heparin, Nitro, Insulin, Cardizem)? @ -No Were any procedures done? @ -No Diagnosis/symptom? @ -Headache Acute, or Chronic, or Acute on Chronic? @ -Acute Uncomplicated (without systemic symptoms) or Complicated (systemic symptoms)? @ -Uncomplicated Side effects of treatment? @ -No Exacerbation, Progression, or Severe Exacerbation? @ -No Poses a threat to life or bodily function? How? (Chest pain, [place], [place], pneumonia, PE, COPD, DKA, ARF, appy, cholecystitis, CVA, Diverticulitis, Homicidal, Suicidal, threat to staff... and all critical care pts) @ -No Disposition Clinical Impression: Headache Disposition: HOME SELF-CARE Condition: Stable Instructions (If sedation given, give patient instructions): Acute Headache (ED) Additional Instructions: Follow-up with PCP as discussed. Please return to the Emergency Department if symptoms worsen or any other concerns. Is patient prescribed a controlled substance at d/c from ED?: No Referrals: Clive Tomas MD [Primary Care Provider] - 1-2 days Time of Disposition: 12:11
--- NOTE | 2024-10-05 11:41 | CT ---
EXAMINATION TYPE: CT brain cspine wo con CT DLP: 1643.4 mGycm, Automated exposure control for dose reduction was used. DATE OF EXAM: 10/05/2024 11:32 AM COMPARISON: CT sinus 01/12/2020. CLINICAL INDICATION:Male, 59 years old with history of pain; posterior neck pain, no injury TECHNIQUE: Brain: Multiple axial CT images of the brain were obtained without IV contrast. Cspine: Axial CT images from the skull base to the inferior aspect of T2 we obtained without intraven ous contrast. Coronal and sagittal reformatted images were also reviewed. FINDINGS: Brain: Extra-axial spaces: No abnormal extra-axial fluid collections. Ventricular system: Within normal limits Cerebral parenchyma: No acute intraparenchymal hemorrhage or mass effect. The petit-white junction is well differentiated. Cerebellum: Poorly evaluated due to artifact. Mass effect: No evidence of midline shift. Intracranial vasculature: unremarkable Soft tissues: Normal. Calvarium/osseous structures: No depressed skull fracture. Paranasal sinuses and mastoid air cells: The mastoid air cells are clear. Air-fluid level identified within the left maxillary sinus. Minimal mucosal thickening of the right sphenoid sinus. Visualized orbits: Orbital contents are intact. Cervical spine: Fracture: None. Osseous structures: Multilevel degenerative disc disease changes with endplate spurring and anterior osteophytosis. Incidental limbus vertebrae involving the C3 vertebral body. Vertebral alignment: Retrolisthesis of C5 on C6. Spinal canal/Neural Foramina: Disc osteophyte complexes at C2-C3 and C4-C5 with at least mild spinal canal stenosis. Central disc protrusion at C3-C4 with mild effacement of the anterior thecal sac. Bro ad-based disc bulge at C5-C6 resulting in at least mild central canal stenosis. Facet joint uncoverte bral joint arthropathy scattered throughout the cervical spine with varying degrees of neural foramin al stenosis. Neck soft tissues: Prevertebral soft tissues are within normal limits. Other: The airway is patent. The lung apices are clear. Left carotid bulb calcification. IMPRESSION: 1. No acute intracranial process. 2. No evidence of cervical spine fracture. 3. Moderate multilevel degenerative disc disease. Consider further evaluation with MR cervical spine as clinically indicated. 4. Findings suggestive of acute sinusitis involving the left maxillary sinus with air-fluid level. Co rrelate clinically [facility], , 10/05/2024 11:38 AM
[2024-10-05 12:22] VITALS: BP 148/79; PULSE 91; TEMP 98.1
== END 2024-10-05 12:22 | disposition home or self-care (01) ==
LOC: EC 10:16
DX: R51.9 Headache, unspecified (principal); M54.2 Cervicalgia
CPT/HCPCS: 70450; 72125; 99284

== ENCOUNTER 2025-03-24 17:56 | Observation (INO) | payer BC ==
--- NOTE | 2025-03-24 18:22 | ED ---
General Adult HPI - General Chief complaint: Neuro Symptoms/Deficit Stated complaint: head pain blurry vision Time Seen by Provider: 03/24/25 18:15 Source: patient Mode of arrival: ambulatory Limitations: no limitations - History of Present Illness Initial comments: Dictation was produced using [employer] dictation software. please excuse any grammatical, word or spelling errors. Chief Complaint: 59-year-old male presents to the emergency department with left arm numbness and blurry vision History of Present Illness: Patient 59-year-old male he presents to the ER after having had intermittent blurred vision for the last couple hours. States that for the last week or so he has had numbness in his left arm. Denies any history of stroke. Complains of a occipital headache that is been chronic intermittent as well. The ROS documented in this emergency department record has been reviewed and confirmed by me. Those systems with pertinent positive or negative responses have been documented in the HPI. All other systems are other negative and/or noncontributory. - Related Data Home Medications Medication Instructions Recorded Confirmed HYDROcodone/APAP 7.5-325MG [[place] 1 tab PO Q8H PRN 06/30/15 10/31/18 7.5-325] lisinopriL [Prinivil] 20 mg PO DAILY 06/30/15 10/31/18 Cetirizine HCl 10 mg PO DAILY 10/30/18 10/31/18 Diclofenac Potassium [Cataflam] 50 mg PO BID 10/30/18 10/31/18 Fluticasone Propion/Salmeterol 1 inhalation PO RT-DAILY PRN 10/30/18 10/31/18 [Advair 250-50 Diskus] Rosuvastatin [Crestor] 10 mg PO DAILY 10/30/18 10/31/18 Testosterone (Unknown Dose) 1 dose INJ Q30D 10/30/18 10/31/18 amLODIPine [Norvasc] 5 mg PO DAILY 10/30/18 10/31/18 Previous Rx's Medication Instructions Recorded Aspirin 325 mg PO BID #60 tab 10/31/18 Zolpidem Tartrate [Ambien] 5 mg PO HS PRN #15 tab 11/01/18 Amoxicillin 875 mg PO Q12HR #20 tablet 11/21/19 Fluticasone Nasal [place] [Flonase 2 spr EA NOSTRIL DAILY #1 bottle 11/21/19 Nasal [place]] Allergies Allergy/AdvReac Type Severity Reaction Status Date / Time No Known Allergies Allergy Verified 03/24/25 18:12 Review of Systems ROS Statement: Those systems with pertinent positive or pertinent negative responses have been documented in the HPI. ROS Other: All systems not noted in ROS Statement are negative. Past Medical History Past Medical History: Hypertension Additional Past Medical History / Comment(s): shortness of breath on occasion, sinus issues History of Any Multi-Drug Resistant Organisms: None Reported Past Surgical History: Joint Replacement, Orthopedic Surgery Additional Past Surgical History / Comment(s): LEFT KNEE REPLACEMENT,LEFT ANKLE Past Anesthesia/Blood Transfusion Reactions: No Reported Reaction Past Psychological History: No Psychological Hx Reported Smoking Status: Never smoker Past Alcohol Use History: Occasional Past Drug Use History: None Reported - Past Family History Mother Family Medical History: No Reported History General Exam - General Exam Comments Initial Comments: PHYSICAL EXAM: General Impression: Alert and oriented x3, not in acute distress HEENT: Normocephalic atraumatic, extra-ocular movements intact, pupils equal and reactive to light bilaterally, mucous membranes moist. Cardiovascular: Heart regular rate and rhythm Chest: Able to complete full sentences, no retractions, no tachypnea Abdomen: abdomen soft, non-tender, non-distended, no organomegaly Musculoskeletal: Pulses present and equal in all extremities, no peripheral edema Motor: no focal deficits noted Neurological: CN II-XII grossly intact, no focal motor or sensory deficits noted Skin: Intact with no visualized rashes Psych: Normal affect and mood Limitations: no limitations Course Vital Signs 03/24/25 03/24/25 03/24/25 18:09 18:27 19:21 Temperature 99.2 F 98.8 F Pulse Rate 104 H 94 87 Respiratory 22 16 16 Rate Blood Pressure 170/114 151/124 136/87 O2 Sat by Pulse 96 93 L 97 Oximetry EKG Findings - EKG Comments: EKG Findings:: My EKG interpretation: Ventricular rate 94, sinus rhythm, TX 160, QRS 94, QTc 398. No TX prolongation, no QTC prolongation, no ST or T-wave changes noted. Overall, this EKG is unremarkable Medical Decision Making - Medical Decision Making Was pt. sent in by a medical professional or institution (, PA, STEEL TIER, urgent care, hospital, or fci...) When possible be specific @ -No Did you speak to anyone other than the patient for history (EMS, parent, family, police, friend...)? What history was obtained from this source @ -No Did you review nursing and triage notes (agree or disagree)? Why? @ -I reviewed and agree with nursing and triage notes Were old charts reviewed (outside hosp., previous admission, EMS record, old EKG, old radiological studies, urgent care reports/EKG's, fci records)? Report findings @ -No old charts were reviewed Differential Diagnosis (chest pain, altered mental status, abdominal pain women, abdominal pain men, vaginal bleeding, musculoskeletal, weakness, fever, dyspnea, syncope, headache, dizziness, GI bleed, back pain, seizure, CVA, palpatations, mental health)? @ - Differential CVA: Ischemic stroke, hemorrhagic stroke, brain tumor, atypical migraine, Wernicke's encephalopathy, seizure, multiple sclerosis, meningitis, encephalitis, hyp oglycemia, Guillain-Prado, electrolytes disturbance, myasthenia gravis.... This is not meant to be an all-inclusive list EKG interpreted by me (3pts min.). @ -See above X-rays interpreted by me (1pt min.). @ -Chest x-ray is nonacute CT interpreted by me (1pt min.). @ -CT brain shows no acute process. CT angiography head and neck shows no acute processes U/S interpreted by me (1pt. min.). @ -None done What testing was considered but not performed or refused? (CT, X-rays, U/S, labs)? Why? @ -None What meds were considered but not given or refused? Why? @ -None Was smoking cessation discussed for >3mins.? @ -No Were there social determinants of health that impacted care today? How? (Oanh elessness, low income, unemployed, alcoholism, drug addiction, transportation, low edu. Level, literacy, decrease access to med. care, group home, rehab)? @ -No Was there de-escalation of care discussed even if they declined (Discuss DNR or withdrawal of care, Hospice)? DNR status @ -No What co-morbidities impacted this encounter? (DM, HTN, Smoking, COPD, CAD, Cancer, CVA, ARF, Chemo, Hep., AIDS, mental health diagnosis, sleep apnea, morbid obesity)? @ -None Was patient admitted / discharged? Hospital course, mention meds given and route, prescriptions, significant lab abnormalities, going to OR and other pertinent info. @ -59-year-old male presents with strokelike symptoms. His arm symptoms have been ongoing for several days. States that he started to have some visual disturbances that are intermittent in nature. Vital signs are stable. Imaging studies are negative. Labs are unremarkable. Patient be admitted for neurology consultation. Case discussed with hospitalist for admission. Patient given aspirin. Did you discuss the management of the patient with other professionals (lore caldwell i.e. , PA, STEEL TIER, lab, RT, psych nurse, dialysis social worker, associate merchandiser, teacher, public service officer, gearcase assembler)? Give summary @ -No Was critical care preformed (if so, how long)? @ -No Undiagnosed new problem with uncertain prognosis? @ -No Drug Therapy requiring intensive monitoring for toxicity (Heparin, Nitro, Insulin, Cardizem)? @ -No Were any procedures done? @ -No Diagnosis/symptom? Acute, or Chronic, or Acute on Chronic? Uncomplicated (without systemic symptoms) or Complicated (systemic symptoms)? @ -Stroke symptoms Side effects of treatment? @ -No Exacerbation, Progression, or Severe Exacerbation? @ -No Poses a threat to life or bodily function? How? (Chest pain, [place], [place], pneumonia, PE, COPD, DKA, ARF, appy, cholecystitis, CVA, Diverticulitis, Homicidal, Suicidal, threat to staff... and all critical care pts) @ -yes - Lab Data Result diagrams: 03/24/25 18:25 03/24/25 18:25 Lab Results 03/24/25 03/24/25 03/24/25 Range/Units 18:25 18:25 18:25 WBC 5.38 (4.50-10.00) 10*3/uL RBC 5.15 (4.40-5.60) 10*6/uL Hgb 15.6 (13.0-17.0) g/dL Hct 44.8 (39.6-50.0) % MCV 87.0 (80.0-97.0) fL MCH 30.3 (27.0-32.0) pg MCHC 34.8 (32.0-37.0) g/dL Plt Count 260 (140-440) 10*3/uL MPV 9.6 (9.5-12.2) fL Immature Gran % (Auto) 0.2 % Neutrophils % 52.5 % Lymphocytes % 35.1 % Monocytes % 7.4 % Eosinophils % 3.5 % Basophils % 1.3 % Immature Gran # 0.01 (0.00-0.04) 10*3/uL Neutrophils # 2.82 (1.80-7.70) 10*3/uL Lymphocytes # 1.89 (0.90-5.00) 10*3/uL Monocytes # 0.40 (0.20-1.00) 10*3/uL Eosinophils # 0.19 (0.04-0.35) 10*3/uL Basophils # 0.07 (0.00-0.10) 10*3/uL PT 10.5 (10.0-12.5) sec INR 0.9 (<1.2) APTT 23.6 (22.0-30.0) sec Sodium 138 (137-145) mmol/L Potassium 4.1 (3.5-5.1) mmol/L Chloride 105 (98-107) mmol/L Carbon Dioxide 20 L (22-30) mmol/L Anion Gap 13 mmol/L BUN 17 (9-20) mg/dL Creatinine 0.92 (0.66-1.25) mg/dL Est GFR (CKD-EPI)AfAm >90 (>60 ml/min/1.73 sqM) Est GFR (CKD-EPI)NonAf >90 (>60 ml/min/1.73 sqM) Glucose 142 H (74-99) mg/dL Calcium 9.7 (8.4-10.2) mg/dL Total Bilirubin 0.6 (0.2-1.3) mg/dL AST 35 (17-59) U/L ALT 54 H (4-49) U/L Alkaline Phosphatase 88 (38-126) U/L Creatine Kinase 185 H (55-170) U/L Troponin I (0.000-0.034) ng/mL Total Protein 7.1 (6.3-8.2) g/dL Albumin 4.3 (3.5-5.0) g/dL 03/24/25 Range/Units 18:25 WBC (4.50-10.00) 10*3/uL RBC (4.40-5.60) 10*6/uL Hgb (13.0-17.0) g/dL Hct (39.6-50.0) % MCV (80.0-97.0) fL MCH (27.0-32.0) pg MCHC (32.0-37.0) g/dL Plt Count (140-440) 10*3/uL MPV (9.5-12.2) fL Immature Gran % (Auto) % Neutrophils % % Lymphocytes % % Monocytes % % Eosinophils % % Basophils % % Immature Gran # (0.00-0.04) 10*3/uL Neutrophils # (1.80-7.70) 10*3/uL Lymphocytes # (0.90-5.00) 10*3/uL Monocytes # (0.20-1.00) 10*3/uL Eosinophils # (0.04-0.35) 10*3/uL Basophils # (0.00-0.10) 10*3/uL PT (10.0-12.5) sec INR (<1.2) APTT (22.0-30.0) sec Sodium (137-145) mmol/L Potassium (3.5-5.1) mmol/L Chloride (98-107) mmol/L Carbon Dioxide (22-30) mmol/L Anion Gap mmol/L BUN (9-20) mg/dL Creatinine (0.66-1.25) mg/dL Est GFR (CKD-EPI)AfAm (>60 ml/min/1.73 sqM) Est GFR (CKD-EPI)NonAf (>60 ml/min/1.73 sqM) Glucose (74-99) mg/dL Calcium (8.4-10.2) mg/dL Total Bilirubin (0.2-1.3) mg/dL AST (17-59) U/L ALT (4-49) U/L Alkaline Phosphatase (38-126) U/L Creatine Kinase (55-170) U/L Troponin I <0.012 (0.000-0.034) ng/mL Total Protein (6.3-8.2) g/dL Albumin (3.5-5.0) g/dL Disposition Clinical Impression: Stroke-like symptoms Disposition: ADMITTED IP TO THIS HOSP Condition: Fair Is patient prescribed a controlled substance at d/c from ED?: No Referrals: Clive Tomas MD [Primary Care Provider] - 1-2 days Decision Time: 20:30
[2025-03-24 18:41] LABS: Basophils # (A) 0.07 10*3/uL (0.00-0.10); Basophils % (A) 1.3 %; Eosinophils # (A) 0.19 10*3/uL (0.04-0.35); Eosinophils % (A) 3.5 %; HCT 44.8 % (39.6-50.0); HGB 15.6 g/dL (13.0-17.0); Lymphocytes # (A) 1.89 10*3/uL (0.90-5.00); Lymphocytes % (A) 35.1 %; MCH 30.3 pg (27.0-32.0); MCHC 34.8 g/dL (32.0-37.0); Mean Platelet Volume 9.6 fL (9.5-12.2); Monocytes % (A) 7.4 %; Neutrophils # (A) 2.82 10*3/uL (1.80-7.70); Neutrophils % (A) 52.5 %; Platelet Count 260 10*3/uL (140-440); RBC 5.15 10*6/uL (4.40-5.60); RDW 12.7 % (11.5-14.5); WBC 5.38 10*3/uL (4.50-10.00)
[2025-03-24 18:51] LABS: ALT 54 U/L (4-49); AST 35 U/L (17-59); African American GFR (CKD) >90 (>60 ml/min/1.73 sqM); Albumin 4.3 g/dL (3.5-5.0); Alkaline Phosphatase 88 U/L (38-126); Anion Gap 13 mmol/L; Blood Urea Nitrogen 17 mg/dL (9-20); Calcium 9.7 mg/dL (8.4-10.2); Carbon Dioxide 20 mmol/L (22-30); Chloride 105 mmol/L (98-107); Creatine Kinase 185 U/L (55-170); Glucose 142 mg/dL (74-99); INR 0.9 (<1.2); Non-African American GFR(CKD) >90 (>60 ml/min/1.73 sqM); Partial Thromboplastin Time 23.6 sec (22.0-30.0); Potassium 4.1 mmol/L (3.5-5.1); Prothrombin Time 10.5 sec (10.0-12.5); Sodium 138 mmol/L (137-145); Total Bilirubin 0.6 mg/dL (0.2-1.3); Total Protein 7.1 g/dL (6.3-8.2)
--- NOTE | 2025-03-24 19:28 | XR ---
EXAMINATION TYPE: XR chest 2V DATE OF EXAM: 03/24/2025 6:46 PM COMPARISON: Chest radiographs from 10/16/2018. CLINICAL INDICATION: Male, 59 years old with history of altered mental status; [facility] TECHNIQUE: XR chest 2V Frontal and lateral views of the chest. FINDINGS: Lungs/Pleura: There is no evidence of pleural effusion, focal consolidation, or pneumothorax. Pulmonary vascularity: Unremarkable. Heart/mediastinum: Cardiomediastinal silhouette is unremarkable. Musculoskeletal: No acute osseous pathology. IMPRESSION: No acute cardiopulmonary disease/process. [facility], , 03/24/2025 7:26 PM
--- NOTE | 2025-03-24 19:42 | CT ---
EXAMINATION TYPE: CT brain wo con DATE OF EXAM: 03/24/2025 7:25 PM COMPARISON: 10/05/2024 CLINICAL INDICATION: Male, 59 years old with history of arm numbness, left sided numbness x1 week, he adache mostly at back of head and blurred vision since 1500 today. Iso 370/65ml No prior JG TECHNIQUE: Brain: Axial CT images of the brain were obtained with coronal and sagittal reformats created and rev iewed. Contrast used: None. Oral contrast used: None. CT DLP: 1142 mGycm, Automated exposure control for dose reduction was used. FINDINGS: Brain: Extra-axial spaces: No abnormal extra-axial fluid collections. Ventricular system: Dilatation in proportion to cerebral atrophy. Cerebral parenchyma: Cerebral atrophy. No acute intraparenchymal hemorrhage or mass effect. The petit -white junction is well differentiated. Scattered hypoattenuating areas are seen within the white mat ter. Cerebellum: Unremarkable. Mass effect: No evidence of midline shift. Intracranial vasculature: Atherosclerotic calcifications of the intracranial vessels. Soft tissues: Normal. Calvarium/osseous structures: No depressed skull fracture. Paranasal sinuses and mastoid air cells: Mild scattered paranasal sinus disease. Visualized orbits: Orbital contents are intact. IMPRESSION: 1. No acute intracranial process. 2. Nonspecific white matter changes, likely secondary to chronic small vessel ischemic disease. [facility], , 03/24/2025 7:40 PM
--- NOTE | 2025-03-24 19:58 | CT ---
EXAMINATION TYPE: CT angio head neck DATE OF EXAM: 03/24/2025 7:25 PM COMPARISON: Same day CT. CLINICAL INDICATION: Male, 59 years old with history of neurologic deficit, left sided numbness x1 we ek, headache mostly at back of head and blurred vision since 1500 today. No prior JG TECHNIQUE: Axially acquired helical CT angiogram of the head and neck was obtained with contrast. Axi al images are supplemented with 3D reconstructions and MIP images which were post-processed at an in dependent workstation. NASCET criteria used. Contrast used:65ml mL of Isovue 370 with IV Contrast, Oral contrast used: None. CT DLP: 521.2 mGycm, Automated exposure control for dose reduction was used. FINDINGS: CTA HEAD: No evidence of acute intracranial hemorrhage, mass effect, or midline shift. The ventricles, sulci, a nd cisterns are unremarkable. Vertebral arteries: The vertebral arteries are patent. Vertebral artery dominance: Codominant Basilar artery: The basilar artery is intact. The basilar artery bifurcation is normal. Internal Carotid arteries: The cervical, petrous, cavernous and supraclinoid segments are normal. GERI: Patent with no evidence of aneurysm. ACOM: Present without evidence of aneurysm. MCA: Patent with no evidence of aneurysm. MAT GAUGER: Patent with no evidence of aneurysm. PCOM: Hypoplastic bilaterally. Dural sinuses: Patent. CTA NECK: Right Carotid System: The common carotid artery and external carotid artery are patent. The carotid bifurcation demonstrate s no evidence of hemodynamically significant stenosis. The remaining portions of the internal carotid artery demonstrate normal size without significant narrowing. Left Carotid System: The common carotid artery and external carotid artery are patent. The carotid bifurcation demonstrate s no evidence of hemodynamically significant stenosis. The remaining portions of the internal carotid artery demonstrate normal size without significant narrowing. Vertebral arteries are patent without evidence hemodynamically significant stenosis. There is a three-vessel aortic arch. The origins of the great vessels are patent. No evidence of hemo dynamically significant stenosis. IMPRESSION: 1. No evidence of dissection of the cervical internal carotid arteries or vertebral arteries. 2. No any evidence of significant stenosis at the carotid bifurcations. 3. No evidence of intracranial high-grade stenosis or intracranial aneurysm. [facility], , 03/24/2025 7:56 PM
[2025-03-24] MEDS ORDERED: NALOXONE 0.4 MG/ML 1 ML VIAL IV PRN (20:26)
[2025-03-24] MEDS: ASPIRIN 81 MG PO STA (20:34)
[2025-03-24] MEDS: SODIUM CHLORIDE 0.9% 1,000 ML IV SCH (20:35)
[2025-03-24] MEDS: ACETAMINOPHEN TAB 500 MG TAB PO STA (21:14)
[2025-03-25] MEDS ORDERED: ACETAMINOPHEN TAB 500 MG TAB PO PRN (10:54)
[2025-03-25] MEDS: MONTELUKAST 10 MG TAB PO SCH (11:23)
[2025-03-25] MEDS: lisinopriL 20 MG TAB PO SCH (11:23)
[2025-03-25] MEDS: ATORVASTATIN 20 MG TAB PO SCH (11:23)
[2025-03-25] MEDS: HYDROcodone/APAP 7.5-325MG 1 EACH TAB PO SCH (11:26)
[2025-03-25] MEDS: IPRATROPIUM-ALBUTEROL 3 ML NEB INHALATION SCH (14:54)
[2025-03-25] MEDS: ALPRAZolam 0.5 MG TAB PO SCH (20:02)
--- NOTE | 2025-03-26 03:06 | HP ---
HISTORY AND PHYSICAL HISTORY OF PRESENT ILLNESS: The patient came to the emergency room with left arm numbness and some blurry vision, is admitted in the ER, so far resolved. CTA is negative of his head and neck. CT of the brain is negative. Occipital headaches and left-sided weakness sometimes goes away when he shakes his arm. REVIEW OF SYSTEMS: A 14-point review of systems otherwise negative. HOME MEDICATIONS: 1. Prinivil 20 daily. 2. [place] 7.5 q.8. 3. Cataflam 50 b.i.d. 4. Advair 250/50 one puff b.i.d. 5. Crestor 10 mg daily. 6. Testosterone daily. 7. Norvasc 5 mg daily. ALLERGIES: Negative. FAMILY HISTORY: Please see chart. PHYSICAL EXAMINATION: VITAL SIGNS: Stable, afebrile. CARDIOVASCULAR: S1, S2. LUNGS: Transmitted upper sounds. GI: Soft. MUSCULOSKELETAL: He has equal strength in both arms. He has some tenderness to palpation in paracervical muscles. HEENT: Pupils equal, round, reactive. No other neurologic findings. EKG shows sinus rhythm. Hemoglobin is 15.6, white count is 5.35, BUN 17, creatinine 0.92. Creatine kinase is elevated at 253. Stroke-like symptoms, dizziness, most likely a cervical myelopathy. Get CT of the spine, may be an MRI of the spine, possible orthopedic consult. Troponins are negative. So far, CTA of the head and neck and CT of the brain are all negative. Please see further orders. MMODL / IJN: [id number] /
[2025-03-26] MEDS: SODIUM CHLORIDE 0.9% 1,000 ML IV SCH (05:43)
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
--- NOTE | 2025-03-26 10:59 | MR ---
EXAMINATION TYPE: MR brain/cspine wo DATE OF EXAM: 03/26/2025 10:38 AM COMPARISON: 03/26/2025 03/24/2025.. CLINICAL INDICATION: Male, 59 years old with history of JENNINGS, left arm numbness; PHH, Headache, Left ar m numbness TECHNIQUE: Multi planar, multi sequence imaging was performed through the brain including: T1, T2, Inversion rec overy, Diffusion weighted imaging, and gradient echo imaging. No gadolinium was given. Multi planar, multi sequence imaging was performed utilizing: T1-weighted, T2-weighted, and turbo inv ersion recovery imaging of the cervical spine. IV Contrast: mL FINDINGS: The petit-white junctions, ventricular system, basal cisterns appear unremarkable. Scattered foci of high T2 signal intensity are seen within the periventricular white matter. Midline structures show n o abnormality. Diffusion-weighted imaging shows no evidence of restricted diffusion. The susceptibili ty weighted images do not reveal any evidence for micro-hemorrhage. The bone marrow signal is within normal limits. Paranasal sinuses and mastoid air cells: No significant paranasal sinus disease. Visualized orbits: Orbital contents are intact. Alignment: The cervical vertebral bodies have preserved heights. Alignment is within normal limits gi vasu patient positioning. Bones: Bony fusion of the C2-C3 vertebral bodies probably the posterior aspect of the vertebral lashay s and the posterior elements.. Bone signal is within normal limits. No abnormal bone marrow edema on inversion recovery sequences. Cord: The spinal cord is unremarkable with regards to their signal intensity and morphology. Discs: Multilevel disc desiccation is present. 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 The spinal canal is patent. No neural foraminal stenosis. C3-C4: A disc osteophyte complex is present with moderate to severe spinal canal stenosis. Bilateral facet and uncovertebral joint arthropathy are present with severe right and moderate left neural for aminal stenosis. C4-C5: No significant disc pathology. The spinal canal is patent. Bilateral facet and uncovertebral joint arthropathy are present with moderate bilateral neural foraminal stenosis. C5-C6: No significant disc pathology. The spinal canal is patent. Bilateral facet and uncovertebral joint arthropathy are present with moderate left and mild right neural foraminal stenosis. C6-C7: No significant disc pathology. The spinal canal is patent. Bilateral facet and uncovertebral joint arthropathy are present with moderate bilateral neural foraminal stenosis. C7-T1: No significant disc pathology. The spinal canal is patent. No neural foraminal stenosis. Other: None. IMPRESSION: 1. C3-C4 moderate spinal canal stenosis secondary disc osteophyte complex and ligamentum flavum selby ling. There is severe right and moderate left neural foraminal stenosis at this level. 2. Moderate disc degeneration with associated osteoarthritic changes. Moderate neural foraminal sten osis at C4-C5 and C6-C7 bilaterally and moderate left at C5-C6 3. 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 4. No evidence of intracranial mass or acute/subacute infarct. 5. Nonspecific white matter changes, likely secondary to small vessel ischemic disease. [facility], , 03/26/2025 10:56 AM
--- NOTE | 2025-03-26 11:49 | CT ---
EXAMINATION TYPE: CT cervical spine wo con DATE OF EXAM: 03/26/2025 11:26 AM COMPARISON: 03/24/2025 CLINICAL INDICATION: Male, 59 years old with history of neuropathy; Chronic neck pain TECHNIQUE: CT of the cervical spine without contrast. Coronal and sagittal reconstructions performed. CT DLP: 440 mGycm, Automated exposure control for dose reduction was used. FINDINGS: No craniocervical junction abnormality, predental space widening, or prevertebral soft tissue swellin g. Straightening of the normal cervical lordosis. Moderate facet and uncovertebral joint arthropathy is present, more severe on the right in the upper and mid cervical spine. Degenerative grade 1 retrolisthesis C6-C7. There is congenital interbody ankylosis of C2-C3 noted. Moderate multilevel degenerative disc disease. No acute fracture is seen. Disc osteophyte complex at C3-C4 continues to a moderate focal spinal canal stenosis with AP canal di mension narrowed to 5 mm. With uncovertebral joint and facet arthropathy, change results in moderate to severe right and moderate left neural foraminal stenosis here. C4-C5, uncovertebral joint and facet arthropathy contribute to moderate bilateral neuroforaminal sten osis. Mild narrowing of the spinal canal from bulging disc. At C5-C6, disc osteophyte complex with contiguous uncovertebral joint and facet arthropathy. Changes result in moderate bilateral neuroforaminal stenosis and mild spinal canal stenosis. At C6-C7, hypertrophic facet and uncovertebral joint arthropathy. Degenerative grade 1 retrolisthesis and disc osteophyte complex. Mild overall spinal canal stenosis and moderate to severe bilateral merline roforaminal stenosis. IMPRESSION: 1. Moderate multilevel spondylotic change. Congenital interbody ankylosis C2-C3. 2. Degenerative grade 1 retrolisthesis C6-C7. 3. Moderate focal spinal canal stenosis at C3-C4 with AP canal dimension narrowed down to 5 mm. Mild narrowing of the spinal canal at additional levels of the cervical spine. 4. Variable moderate neural foraminal stenoses as outlined above. Moderate to severe on both sides at C6/C7. Moderate to severe on the right at C3-C4. [facility], Workstation: [id number], 03/26/2025 11:46 AM
[2025-03-26 14:45] VITALS: BP 161/81; RESP 16; TEMP 98.1
[2025-03-26 15:21] VITALS: PULSE 84
--- NOTE | 2025-03-29 11:51 | P.PN ---
Subjective Progress Note Date: 03/26/25 Patient was seen for follow-up. Patient denies any new neurological symptoms. He wants to go home. Objective - Vital Signs Vital signs: Vital Signs Temp 97.8 F 03/26/25 07:00 Pulse 68 03/26/25 09:20 Resp 14 03/26/25 07:00 BP 115/74 03/26/25 07:00 Pulse Ox 98 03/26/25 09:08 FiO2 Intake & Output 03/25/25 03/26/25 03/26/25 18:59 06:59 18:59 Intake Total 480 118 Balance 480 118 Weight 92.986 kg Intake: Oral 480 118 Other: Voiding Method Toilet Toilet # Voids 1 2 - Exam Examination completely unchanged. Mentation normal. Strength normal. - Labs CBC & Chem 7: 03/24/25 18:25 03/24/25 18:25 Assessment and Plan Assessment: * Intermittent bioccipital (right> left) pain, with intermittent paresthesias of the entire left arm. Patient has possible right occipital neuralgia and left arm radiculopathy. Examination however is normal. Symptoms have been present for over 6 months, although worse in the last 2-3 weeks. MRI of the cervical spine revealed moderate spinal stenosis at C3-C4 level. * Hypertension * Hyperlipidemia * History of bilateral knee surgeries. Plan: * MRI of the brain revealed no evidence of intracranial mass or acute/subacute infarct. Nonspecific but matter changes, likely secondary to small vessel ischemic disease. I personally reviewed MRI agree with the findings. * MRI of the cervical spine revealed C3-C4 moderate spinal canal stenosis secondary to disc osteophyte complex and ligamentum flavum buckling. There is severe right and moderate left neuroforaminal stenosis at this level. Moderate disc generation with associated osteoarthritic changes. Moderate neural foraminal stenosis at C4-C5 and C6-C7 bilaterally and moderate left at C5-C6. 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 I personally reviewed MRI agree with the findings. On my review, that he is at least moderate spinal stenosis at C3 4 level producing symptoms. * CTA of head and neck revealed no evidence of dissection of the cervical internal carotid arteries or vertebral arteries. No evidence of significant stenosis at the carotid bifurcation. No evidence of intracranial high-grade stenosis or intracranial aneurysm. * Orthopedic surgery consultation was initiated, but Dr. Regalado not available. Patient wants to go home and will follow-up with orthopedics spine as outpatient. * Neurologically clear for discharge.
== END 2025-03-26 19:00 | disposition home or self-care (01) ==
LOC: EC 17:56 → 6NMEDSUR 20:27
PROVIDERS: ADMIT Family Medicine; ATTEND Family Medicine
DX: R51.9 Headache, unspecified (principal); R20.2 Paresthesia of skin; R20.0 Anesthesia of skin; I10 Essential (primary) hypertension; E78.5 Hyperlipidemia, unspecified; M48.02 Spinal stenosis, cervical region; Z79.899 Other long term (current) drug therapy; Z79.82 Long term (current) use of aspirin
CPT/HCPCS: 96361 ×3; 96360; 99285; 36415; 94640 ×3; 94760; 93005; 80053; 82550 ×2; 84484; 85025; 85610; 85730; 71046; 72125; 70496; 70450; 70498; 70551; 72141; G0378 ×3; Q9967